=== PATIENT | male | born 1945 | race Caucasian/White ===

== ENCOUNTER → 2017-10-03 | Outpatient (CLI) | payer MEDICARE, OTHER ==
[~2017-10-03] MED LIST: AC325T PO; ALBU8.5H2 IH; ASP81CT; BUDE10.22 IH; CEPH250C PO; CEPH500C PO; HCT25T; LRT10T; LSNP10T; MULT1TAB63; OMEG-9 PO; RT-ALBUTEROL SULF 2.5 MG/3 ML PRE-MIX VIAL INH ONE; SMV20T
== END ==
LOC: RT 09:26
PROVIDERS: ATTEND Nurse Practitioner Family
DX: J45.909 Unspecified asthma, uncomplicated (principal); R06.00 Dyspnea, unspecified
CPT/HCPCS: 94060; 94726; 94729

== ENCOUNTER → 2018-03-29 | Outpatient (CLI) | payer MEDICARE, OTHER ==
[~2018-03-29] MED LIST changes: -RT-ALBUTEROL SULF 2.5 MG/3 ML PRE-MIX VIAL INH ONE
--- NOTE | 2018-03-29 12:05 | Diagnostic Imaging Report ---
INDICATION: Reactive airway disease and dyspnea. PA and lateral views of the chest are obtained. Comparison is made to study of 07/27/2014. FINDINGS: Heart size and pulmonary vascularity are within normal limits. There is prominent hiatal hernia. Left basilar atelectasis and/or scarring has shown mild worsening. Degenerative findings are present within both shoulders. IMPRESSION: Prominent hiatal hernia with mild worsening left basilar atelectasis. Dictated by: Dictated on workstation # [id number]
== END ==
LOC: RAD 11:14
PROVIDERS: ATTEND Nurse Practitioner Family
DX: J45.909 Unspecified asthma, uncomplicated (principal); K44.9 Diaphragmatic hernia without obstruction or gangrene; J98.11 Atelectasis
CPT/HCPCS: 71046

== ENCOUNTER → 2018-10-09 | Outpatient (CLI) | payer MEDICARE, OTHER ==
[~2018-10-09] VITALS: Ht 172.7 cm; Wt 84.4 kg
[~2018-10-09] MED LIST changes: +CATHETER FLUSH 10 ML SYR IV PRN; +REGADENOSON 0.4 MG/5 ML SYR (LEXISCAN) IV ONE
[2018-10-09 09:49] VITALS: BP 131/92
--- NOTE | 2018-10-10 09:16 | STRESS TEST ---
DATE OF SERVICE: 10/09/2018 LEXISCAN MYOVIEW STRESS TEST REPORT Baseline heart rate is 62. Baseline blood pressure 158/103. Baseline EKG is sinus rhythm with right bundle branch block. In summary, the patient was injected with 10.46 mCi of technetium-99 Myoview and the resting images were obtained. Then, the patient received 0.4 mg of Lexiscan followed by 29.5 mCi of technetium-99 Myoview. Throughout the test, there were no EKG changes. The resting and stress images were reviewed and compared in the short axis, horizontal long axis, and vertical long axis views. Review of the images showed diaphragmatic attenuation with typical male pattern. No significant ischemia or infarction were seen. SSS is 4, SDS 2, TID value 1.03. On the gated images, the left ventricle appeared to be in normal size with normal contractility. Calculated ejection fraction 55%. CONCLUSION: 1. The patient tolerated Lexiscan well. 2. Diaphragmatic attenuation with typical male pattern. No significant ischemia or infarction on SPECT images. 3. Normal left ventricular size with normal contractility. Calculated ejection fraction 55%. Job ID: [id number] DocumentID: [id number] Dictated Date: 10/10/2018 08:10:02 Database Reporting Consultant Date: 10/10/2018 09:15:23 Dictated By: RIDGE GARVEY MD
== END ==
LOC: CARD 07:46
PROVIDERS: ATTEND Physician Assistant
DX: I25.10 Atherosclerotic heart disease of native coronary artery without angina pectoris (principal); R06.09 Other forms of dyspnea; G47.33 Obstructive sleep apnea (adult) (pediatric); I08.1 Rheumatic disorders of both mitral and tricuspid valves
CPT/HCPCS: 78452; 93017; 93306

== ENCOUNTER → 2020-08-22 | Outpatient (CLI) | payer MEDICARE, OTHER ==
[~2020-08-22] MED LIST changes: -CATHETER FLUSH 10 ML SYR IV PRN; -REGADENOSON 0.4 MG/5 ML SYR (LEXISCAN) IV ONE
--- NOTE | 2020-08-22 13:57 | Diagnostic Imaging Report ---
PROCEDURE: CT abdomen and pelvis without contrast. TECHNIQUE: Multiple contiguous axial images were obtained through the abdomen and pelvis without the use of intravenous contrast. Auto Exposure Controls were utilized during the CT exam to meet ALARA standards for radiation dose reduction. INDICATION: Right-sided flank pain and dysuria for one week. COMPARISON: Correlation is made with prior CT from 10/12/2012. FINDINGS: The lung bases are clear. Patient does have a very large hiatal hernia. No discrete liver mass is detected. There appears to be a small stone within the gallbladder. No biliary ductal dilatation is seen. Pancreas and spleen are unremarkable. No adrenal mass is detected. The right kidney contains a tiny nonobstructing calculus. There is a large cyst involving the left kidney measuring 8.2 cm AP diameter compared with 6.1 cm on prior. There are several tiny nonobstructing calculi in lower pole of left kidney as well. No definite ureteral calculi or hydronephrosis is identified. There is a calculus in the midline of the bladder base measuring 7 mm. There also appears be a small bladder diverticulum on the left at the base measuring 9 mm. Aorta and iliac vessels are heavily calcified but nonaneurysmal. Small and large bowel loops are normal caliber. There is no obstruction. No free fluid or fluid collection is identified. There is a left inguinal hernia containing portions of the sigmoid colon. No bowel obstruction or evidence of strangulation is seen. Bony structures are nonacute. IMPRESSION: 1. Large hiatal hernia. 2. Cholelithiasis. 3. Bilateral nonobstructing nephrolithiasis. 4. Increase in size of simple-appearing left renal cyst. 5. Bladder calculus and a small bladder diverticulum. 6. Left inguinal hernia containing portions of the sigmoid colon. No bowel obstruction or evidence of strangulation is identified. Dictated by: Dictated on workstation # [id number]
== END ==
LOC: RAD FS 13:25
PROVIDERS: ATTEND Nurse Practitioner Family
DX: K44.9 Diaphragmatic hernia without obstruction or gangrene (principal); K40.90 Unilateral inguinal hernia, without obstruction or gangrene, not specified as recurrent; N20.0 Calculus of kidney; N28.1 Cyst of kidney, acquired; N32.3 Diverticulum of bladder; N21.0 Calculus in bladder
CPT/HCPCS: 74176

== ENCOUNTER → 2021-03-16 | Outpatient (CLI) | payer MEDICARE, OTHER ==
[~2021-03-16] MED LIST changes: +RT-ALBUTEROL SULF 2.5 MG/3 ML PRE-MIX VIAL INH ONE
== END ==
LOC: RT 09:30
PROVIDERS: ATTEND Nurse Practitioner Family
DX: J45.909 Unspecified asthma, uncomplicated (principal)
CPT/HCPCS: 94060; 94726; 94729

== ENCOUNTER → 2022-11-30 | Outpatient (CLI) | payer MEDICARE, OTHER ==
[~2022-11-30] MED LIST changes: -RT-ALBUTEROL SULF 2.5 MG/3 ML PRE-MIX VIAL INH ONE
== END ==
LOC: CARD 12:45
PROVIDERS: ATTEND Internal Medicine Cardiovascular Disease
DX: I11.9 Hypertensive heart disease without heart failure (principal); I25.10 Atherosclerotic heart disease of native coronary artery without angina pectoris
CPT/HCPCS: 93306

== ENCOUNTER → 2023-02-02 | Outpatient (CLI) | payer MEDICARE, OTHER ==
[~2023-02-02] MED LIST changes: +CATHETER FLUSH 10 ML SYR IVP PRN; +REGADENOSON 0.4 MG/5 ML SYR (LEXISCAN) IV ONE
[2023-02-02 12:51] VITALS: BP 120/90
--- NOTE | 2023-02-02 14:46 | Cardiology Stress Test Report ---
Stress Test Report Date of Procedure/Referring: Date of Procedure: Feb 02, 2023 PCP Rolando Martin MD Admitting Physician Admitting Physician: Attending Physician: Ridge Mccloud MD Baseline Heart Rate: 66 Baseline Blood Pressure: Blood Pressure Systolic: 120 Blood Pressure Diastolic: 90 Baseline Vitals Vital Signs Date Time Temp Pulse Resp B/P (MAP) Pulse Ox O2 Delivery O2 Flow Rate FiO2 02/02/23 12:51 66 120/90 (100) 97 Baseline EKG: Baseline EKG: RBBB Summary After explaining the procedure to the patient, he signed a consent and then brought to the stress nuclear laboratory. Patient received 0.4 mg Lexiscan for stress test, ECG, heart rate and blood pressure were monitored continuously. Resting and stress dose of radio tracer were injected, imaging was acquired and reviewed in short axis, horizontal long axis and vertical long axis views. TID: 0.97 SSS: 15 SDS: 9 EF: 60 Patient was unable to exercise, test was converted to Lexiscan Myoview stress test Baseline right bundle branch block persisted during test Nondiagnostic EKG changes persisted during test Reversible ischemia involving the whole inferior wall and inferolateral wall Normal left ventricular size, ejection fraction 60% CC Dr. Rolando Martin Copy Copies To 1: [facility] [place] RIDGE MCCLOUD MD Feb 02, 2023 14:46
== END ==
LOC: CARD 10:57
PROVIDERS: ATTEND Internal Medicine Cardiovascular Disease
DX: I10 Essential (primary) hypertension (principal); I25.10 Atherosclerotic heart disease of native coronary artery without angina pectoris
CPT/HCPCS: 78452; 93017; A9502

== ENCOUNTER 2023-02-23 07:54 | Day surgery (SDC) | payer MEDICARE ==
[~2023-02-23] VITALS: Ht 172 cm; Wt 80.7 kg
[2023-02-23] VITALS (8 sets, daily range): BP systolic 94–125; BP diastolic 50–82
[~2023-02-23 07:54] MED LIST changes: -CATHETER FLUSH 10 ML SYR IVP PRN; -REGADENOSON 0.4 MG/5 ML SYR (LEXISCAN) IV ONE
[2023-02-23] MEDS ORDERED: LIDOCAINE 1% INJ 20 ML VIAL ONE (08:00)
[2023-02-23] MEDS ORDERED: NS IV 1000 ML 1,000 ML IV ONE (08:00)
[2023-02-23] MEDS ORDERED: HEParin (CATH LAB) 2,000 ML IV ONE (08:01)
[2023-02-23] MEDS ORDERED: NS IV 1000 ML 1,000 ML ONE (08:01)
[2023-02-23 08:38] LABS: HEMATOCRIT 45 % (40-54); HEMOGLOBIN 15.5 g/dL (13.3-17.7); MEAN CORPUSCULAR HEMOGLOBIN 34 pg (25-34); MEAN CORPUSCULAR HGB CONC 34 g/dL (32-36); MEAN CORPUSCULAR VOLUME 98 fL (80-99); MEAN PLATELET VOLUME 10.2 fL (9.0-12.2); PLATELET COUNT 234 10^3/uL (130-400); WHITE BLOOD COUNT 7.8 10^3/uL (4.3-11.0)
[2023-02-23 08:57] LABS: ALBUMIN 4.3 GM/DL (3.2-4.5); BILIRUBIN,TOTAL 0.6 MG/DL (0.1-1.0); CALCIUM 8.9 MG/DL (8.5-10.1); CREATININE SERUM 0.98 MG/DL (0.60-1.30); POTASSIUM 4.1 MMOL/L (3.6-5.0)
--- NOTE | 2023-02-23 08:59 | Diagnostic Imaging Report ---
INDICATION: Abnormal stress test. TECHNIQUE: A frontal chest was obtained at 8:49 AM. FINDINGS: The heart is normal in size. The mediastinal silhouette is unremarkable. The lungs are clear except for some minimal linear scarring in the left base. There is no pneumothorax or pleural fluid. There is a prominent hiatal hernia. IMPRESSION: No acute process in the chest. Dictated by: Dictated on workstation # [id number]
[2023-02-23] MEDS ORDERED: LISI20TA26 PO (09:00)
[2023-02-23] MEDS ORDERED: OMEG100032 PO ×2 (09:00)
[2023-02-23] MEDS ORDERED: TMSL.4C PO (09:00)
[2023-02-23] MEDS ORDERED: SIMV20TA26 PO (09:00)
[2023-02-23] MEDS ORDERED: FINA5TAB6 PO (09:00)
[2023-02-23] MEDS ORDERED: TIOT18CA2 IH (09:00)
[2023-02-23] MEDS ORDERED: VITA100T8 PO (09:00)
[2023-02-23] MEDS ORDERED: LORA10TA7 PO (09:00)
[2023-02-23] MEDS ORDERED: FLUT1DIS26 IH (09:00)
[2023-02-23] MEDS ORDERED: LUTE10TA PO (09:00)
[2023-02-23] MEDS ORDERED: ASCO500T17 PO (09:00)
[2023-02-23] MEDS ORDERED: MONT-40 PO (09:00)
[2023-02-23] MEDS ORDERED: CETI10TA17 PO (09:00)
[2023-02-23] MEDS ORDERED: VITA1TAB17 PO (09:00)
[2023-02-23] MEDS ORDERED: FERR-84 PO (09:00)
[2023-02-23] MEDS ORDERED: HYDR25TA4 PO (09:00)
[2023-02-23] MEDS ORDERED: CALC-250 PO (09:00)
[2023-02-23] MEDS ORDERED: ASPI-1238 PO (09:00)
[2023-02-23] MEDS ORDERED: UBID100C17 PO (09:00)
[2023-02-23] MEDS ORDERED: HEParin 1000 UNIT/ML (10ML VIAL) FOR BOLUS ONE (10:15)
[2023-02-23] MEDS ORDERED: NITRO DRIP 25000 MCG/D5W 250 ML IV ONE (10:15)
[2023-02-23] MEDS ORDERED: MIDAZOLAM INJ 5 MG/5 ML VIAL ONE (10:15)
[2023-02-23] MEDS ORDERED: VERAPAMIL 5 MG/2 ML (CALAN) VIAL IV ONE (10:15)
[2023-02-23] MEDS ORDERED: fentaNYL INJECTION 100 MCG/2 ML VIAL ONE (10:15)
--- NOTE | 2023-02-23 11:03 | Cardiac Procedure Note-CS/ASA ---
Pre-Procedure Note Pre-Op Procedure Note Date of Available H&P: Feb 03, 2023 Date H&P Reviewed: Feb 23, 2023 Time H&P Reviewed: 10:00 History & Physical: H&P Reviewed, Patient Examed, No changes noted Pre-Operative Diagnosis: CAD Moderate Sedation PreProcedure Time 10:00 ASA Score 3 Airway Lungs Heart ASA score ASA 1: a normal healthy patient ASA 2: a patient with a mild systemic disease (mid diabetes, controlled hypertension, obesity ASA 3: a patient with a severe systemic disease that limits activity (angina, COPD, prior Myocardial infarction) ASA 4: a patient with an incapacitating disease that is a constant threat to life (CHF, renal failure) ASA 5: a moribund patient not expected to survive 24 hrs. (ruptured aneurysm) ASA 6: a declared brain- patient whose organs are being harvested. For emergent operations, add the letter E after the classification Mallampati Classification Grade 3 Sedation Plan Analgesia, Amnesia, Plan communicated to team members, Discussed options with patient/fam, Discussed risks with patient/fam The patient is an appropriate candidate to undergo the planned procedure, sedation, and anesthesia. The patient immediately re-assessed prior to indication. RIDGE GARVEY MD Feb 23, 2023 11:03
--- NOTE | 2023-02-23 11:04 | Discharge Inst-Post CATH ---
Discharge Inst-CATH/EP Problems Reviewed?: Yes Post Cardiac Cath/EP D/C Inst Follow Up/Plan Appointment with Dr. Mccloud's office in 2 to 4 weeks <b>CARDIAC CATH/EP PROCEDURE DISCHARGE INSTRUCTIONS</b> ACTIVITY * Go Home directly and rest. * Limit activity of the leg (or wrist if it was used) for 7 days including aer obics, swimming, jogging, bicycling, etc. * Restrict stair-climbing for 7 days if possible, if not, climb up with your non-cath leg, then bring together on the same step. * Avoid lifting, pushing, pulling or excessive movement of the affected extremi ty for 7 days. * Customary sexual activity may be resumed after 2 days-use caution not to use a position that strains or causes pain to the affected extremity. * No driving for 24 hours. * NO SMOKING. * Avoid straining for bowel movements for 7 days. * Gentle walking on level ground is allowed. * Returning to work will depend on the type of procedure and the results. Your doctor will discuss this with you. CALL YOUR DOCTOR FOR ANY OF THE FOLLOWING: *If bleeding from the puncture site occurs- Apply gentle pressure to site with clean cloth and call your doctor or EMS. * If a knot or lump forms under the skin, increases in size, or causes pain. * If bruising appears to be worsening or moving further down your leg instead of disappearing. * Temperature above 101 F. CARE OF YOUR GROIN INCISION; * Bruising or purple discoloration of the skin near the puncture site is common. * You may shower only, no bathtub bathing for 5 days. Be careful to avoid slipping as your leg may feel stiff. * If a closure device was used on your femoral artery, please see the attached guide regarding care of the device and your leg. * Leave dressing on FOR 24 hours. CARE OF YOUR WRIST INCISION; * Bruising or purple discoloration of the skin near the puncture site is common. * You may shower. * DO NOT submerge wrist. * Leave dressing on FOR 24 hours. RIDGE MCCLOUD MD Feb 23, 2023 11:04
--- NOTE | 2023-02-23 11:10 | Cardiac Cath Report ---
Cardiac Cath Report Physician (s)/Power Lineman Technician (s) Physician RIDGE GARVEY MD Pre-Procedure Diagnosis Pre-Procedure Diagnosis: CAD Post-Procedure Note Procedure Start Date: Feb 23, 2023 Name of Procedure: Left heart catheterization Findings/Procedure Note PROCEDURE NOTE: 78-year-old gentleman with history of hypertension, hyperlipidemia, had an abnormal stress test with reversible ischemia in the inferior wall, cardiac catheterization was advised. After explaining the procedure to the patient, all pros and cons were explained, all questions were answered. The patient signed the consent and then he was placed in the cardiac catheterization laboratory. Groin was prepped in SL fashion local anesthesia was used. Sheath placed in the right radial artery, [place] catheter was advanced to the left ventricular cavity, pressure was juliann ured, pullback LV to aorta was done, engage the left system, I was unable to engage the right system, exchanged the catheter Loyd right catheter, was unable to engage nonselective angiogram was done to the right system. At the end of the procedure the sheath was removed. Vascular band was used FINDINGS: Hemodynamics LV 90/17, end-diastolic pressure of 17 Aorta 89/61 mean of 73 ANATOMY: Left Main is calcified with mild disease nonobstructive disease Left Anterior Descending has calcification with less than 20% stenosis nonobstructive disease Left Circumflex nondominant artery with no obstructive disease Right Coronary Artery is a large dominant artery totally occluded at the ostium, getting filled by collaterals from the left system LV Gram was not done, pressure was measured CONCLUSION: Totally occluded right coronary artery, dominant artery, getting filled by collaterals from the left system Calcified with mild to moderate disease nonobstructive disease Mildly elevated left ventricular end-diastolic pressure DISCUSSION AND RECOMMENDATION: Right coronary artery is occluded it is a large artery, patient is asymptomatic. Conservative management is recommended, I would consider high risk intervention with referral to [facility] if patient becomes symptomatic otherwise continue with maximizing medical therapy Anesthesia Type: Conscious Sedation Estimated blood loss (mL): 20 ml Contrast Amount: 63 ml Post-Procedure Diagnosis Post-operative diagnosis: Coronary artery disease Right bundle branch block Hypertension Hyperlipidemia RIDGE GARVEY MD Feb 23, 2023 11:10
[2023-02-23] MEDS ORDERED: NS IV 1000 ML 1,000 ML IV SCH (11:15)
== END 2023-02-23 13:36 | disposition home or self-care (01) ==
LOC: CATH 07:54 → SDC 11:22 → CATH 13:36
PROVIDERS: ATTEND Internal Medicine Cardiovascular Disease
DX: I25.10 Atherosclerotic heart disease of native coronary artery without angina pectoris (principal); I45.19 Other right bundle-branch block; I10 Essential (primary) hypertension; I65.29 Occlusion and stenosis of unspecified carotid artery; J45.909 Unspecified asthma, uncomplicated; R42 Dizziness and giddiness; E78.2 Mixed hyperlipidemia; R94.39 Abnormal result of other cardiovascular function study; Z87.891 Personal history of nicotine dependence; Z79.899 Other long term (current) drug therapy
CPT/HCPCS: 71045; 80053; 80061; 85027; 85610; 85730; 87081; 93005; 93458; C1894; 36415